=== PATIENT | female | born 1990 | race African-American/Black ===

== ENCOUNTER 2019-10-31 16:18 | Outpatient (CLI) | payer OTHER | END 2019-10-31 16:19 | disposition home or self-care (01) | LOC: DTY/OP 16:18 | PROVIDERS: ATTEND Surgery | DX: E66.01 Morbid (severe) obesity due to excess calories (principal) | CPT/HCPCS: 97802 ==

== ENCOUNTER 2019-11-07 07:35 | Outpatient (CLI) | payer OTHER ==
--- NOTE | 2019-11-07 16:28 | RAD ---
EXAM: Chest PA and lateral: HISTORY: Preoperative exam. COMPARISON: 04/05/2014 FINDINGS: Heart: Normal cardiac silhouette Aorta: Unremarkable Pulmonary vessels: Normal Costophrenic angles: Costophrenic angles are clear. Lungs: No consolidation or masses. Pneumothorax: No pneumothorax Osseous structures: No osseous abnormalities IMPRESSION: No acute cardiopulmonary process.
[2019-11-07 18:17] LABS: #Basophils 0.1 thou/uL (0.0-0.2); #Eosinphils 0.3 thou/uL (0.0-0.7); #Lymphocytes 3.9 thou/uL (1.20-3.40); #Monocytes 0.6 thou/uL (0.11-0.59); #Neutrophils 4.9 thou/uL (1.40-6.50); %Basophils 1.3 % (0.0-1.0); %Eosinophils 2.7 % (0.0-10.0); %Lymphocytes 39.8 % (21.0-51.0); %Neutrophils 50.1 % (42.0-75.0); Hemoglobin 11.5 g/dL (12.0-16.0); Mean Corpuscular HGB CONC 31.3 g/dL (32.0-36.0); Mean Corpuscular Hemoglobin 28.3 pg (27.0-31.0); Mean Corpuscular Volume 90.4 fL (78.0-98.0); Mean Platelet Volume 7.3 fL (7.4-10.4); Platelet Count 419 thou/uL (130-400); RBC Distribution Width 13.6 % (11.5-14.5); Red Blood Cell (RBC) Count 4.07 mill/uL (4.20-5.40); White Blood Cell (WBC) Count 9.8 thou/uL (4.8-10.8)
[2019-11-07 18:27] LABS: Hemoglobin A1c 5.4 % (4.0-6.0)
[2019-11-07 18:33] LABS: ALT (SGPT) 9 U/L (8-55); AST (SGOT) 14 U/L (5-34); Albumin 4.5 g/dL (3.5-5.0); Alkaline Phosphatase 102 U/L (40-110); Anion Gap 13 mmol/L (10-20); BUN (Urea Nitrogen) 12 mg/dL (7.0-18.7); Bilirubin, Total 0.4 mg/dL (0.2-1.2); Calc. Creatinine Clearance 0 mL/min (70-130); Calcium 9.4 mg/dL (7.8-10.44); Carbon Dioxide 24 mmol/L (22-29); Chloride 106 mmol/L (98-107); Estimated GFR-MDRD Greater than 90; Globulin 3.6 g/dL (2.4-3.5); Glucose 95 mg/dL (70-105); Potassium 4.5 mmol/L (3.5-5.1); Protein, Total 8.1 g/dL (6.0-8.3); Sodium 138 mmol/L (136-145)
[2019-11-08 14:02] LABS: SARS-CoV-2 MS2 Positive; SARS-CoV-2 N Gene Negative; SARS-CoV-2 S Gene Negative; SARS-CoV-2 orf1ab Negative
== END 2019-11-07 07:36 | disposition home or self-care (01) ==
LOC: LABBT 07:35
PROVIDERS: ATTEND Surgery
DX: Z01.818 Encounter for other preprocedural examination (principal); Z11.59 Encounter for screening for other viral diseases; E66.01 Morbid (severe) obesity due to excess calories
CPT/HCPCS: 71046; 80053; 83036; 85025; 87635; 93005; 93010; U0003

== ENCOUNTER 2019-11-07 16:15 | Inpatient (IN) | payer OTHER ==
[2019-11-04 09:26] VITALS: BMI 45.8
[2019-11-10] MEDS ORDERED: Bupivacaine 0.25% HCL 30 ML VIAL ONE (06:55)
[2019-11-10] MEDS ORDERED: Lidocaine 1% w/Epinephrine 1:100K 20 ML VIAL ONE (06:55)
[2019-11-10] MEDS ORDERED: Heparin 5,000 UNITS/ML VIAL ONE (08:14)
[2019-11-10] MEDS ORDERED: Scopolamine 1.5 mg/72 hour Patch ONE (08:28)
[2019-11-10] MEDS ORDERED: Midazolam HCl 2 mg/2 ml Vial ONE (08:28)
[2019-11-10] MEDS ORDERED: Fentanyl 100 MCG/2 ML VIAL ONE ×2 (09:48→12:13)
[2019-11-10] MEDS ORDERED: HYDROmorphone 2 MG/ML VIAL ONE (09:48)
[2019-11-10] MEDS ORDERED: EPHEDRINE 25 MG/5 ML SYRINGE ONE (11:47)
[2019-11-10] MEDS ORDERED: Morphine Sulfate 2 MG/ML SYRINGE SLOW IVP PRN (11:47)
[2019-11-10] MEDS ORDERED: PACU-Morphine 4MG/ML VIAL SLOW IVP PRN (11:47)
[2019-11-10] MEDS ORDERED: Lidocaine 1% PF 5 ML VIAL ONE (11:47)
[2019-11-10] MEDS ORDERED: HYDROmorphone 2 MG/ML VIAL SLOW IVP PRN (11:47)
[2019-11-10] MEDS ORDERED: Rocuronium Bromide 10 MG/ML (10ML VIAL) ONE (11:47)
[2019-11-10] MEDS ORDERED: Promethazine HCl 25 MG/ML VIAL SLOW IVP PRN (11:47)
[2019-11-10] MEDS ORDERED: Ketorolac Tromethamine 30 MG/ML VIAL ONE (11:47)
[2019-11-10] MEDS ORDERED: Ondansetron HCl/PF 4 MG/2 ML Vial IVP PRN (11:47)
[2019-11-10] MEDS ORDERED: PROPOFOL 200 MG/20 ML VIAL ONE (11:47)
[2019-11-10] MEDS ORDERED: Dexamethasone 20 MG/5 ML VIAL ONE (11:47)
[2019-11-10] MEDS ORDERED: Ondansetron PF 4 MG/2 ML Vial ONE (11:47)
[2019-11-10] MEDS ORDERED: Glycopyrrolate 0.2 MG/ML 5 ML SYRINGE ONE (11:47)
[2019-11-10] MEDS ORDERED: Meperidine HCl/PF 25 MG/ML VIAL SLOW IVP PRN (11:47)
[2019-11-10] MEDS ORDERED: Promethazine HCl 25 MG/ML VIAL IM PRN ×3 (11:47→12:24)
[2019-11-10] MEDS ORDERED: Promethazine HCl 25 MG/ML VIAL ONE (12:16)
[2019-11-10] MEDS ORDERED: diphenhydrAMINE 25 MG CAP PO PRN (12:20)
[2019-11-10] MEDS ORDERED: Ondansetron PF 4 MG/2 ML Vial IVP PRN ×2 (12:20→12:24)
[2019-11-10] MEDS ORDERED: diphenhydrAMINE 50 MG/ML VIAL IM PRN (12:20)
[2019-11-10] MEDS ORDERED: Zolpidem Tartrate 5 MG TAB PO PRN (12:20)
[2019-11-10] MEDS ORDERED: Naloxone HCl 0.4 mg/ml Vial IV PRN (12:20)
[2019-11-10] MEDS ORDERED: fentaNYL Citrate/PF 2,000 MCG in Sodium Chloride 0.9% 60 ML IV PRN (12:20)
[2019-11-10] MEDS ORDERED: diphenhydrAMINE 50 MG/ML VIAL IVP PRN ×2 (12:20→12:24)
[2019-11-10] MEDS ORDERED: Dextrose 50% Abboject 50 ML SYRINGE SLOW IVP PRN (12:24)
[2019-11-10] MEDS ORDERED: hydrALAZINE 20 MG/ML VIAL SLOW IVP PRN (12:24)
[2019-11-10] MEDS ORDERED: Dextrose 5% in Water 1,000 ML IV PRN (12:24)
[2019-11-10] MEDS ORDERED: Hydrocodone-Acetamin 15 ML UDCUP PO PRN (12:24)
[2019-11-10] MEDS ORDERED: Communication Order-Pharmacy FS SCH (12:30)
[2019-11-10] MEDS: D5 1/2 NS w/20 mEq KCL 1,000 ML IV SCH ×3 (14:36→21:14)
--- NOTE | 2019-11-10 17:23 | OP ---
DATE OF PROCEDURE: 11/10/2019 PREOPERATIVE DIAGNOSIS: Morbid obesity with body mass index of 45. POSTOPERATIVE DIAGNOSES: 1. Morbid obesity with body mass index of 45. 2. Paraesophageal hiatal hernia. PROCEDURES PERFORMED: 1. Laparoscopic sleeve gastrectomy with GORE staple line reinforcement and 38-Upper [place] bougie. 2. Laparoscopic hiatal hernia repair without fundoplication or mesh. 3. Esophagogastroduodenoscopy. ANESTHESIA: General. ESTIMATED BLOOD LOSS: Minimal. COMPLICATIONS: None. SPECIMENS: Stomach. FINDINGS: Hiatal hernia, normal postoperative EGD. DESCRIPTION OF PROCEDURE: The patient was taken to the operating room and laid supine on the operating room table. After general anesthetic was obtained, arms and legs were double strapped to bariatric table. OG-tube was used to decompress the stomach. The abdomen was prepped and draped in a sterile fashion. Left subcostal 5-mm Optiview trocar was placed in the usual fashion. High-flow pneumoperitoneum was obtained. Left and right abdominal 12-mm ports as well as a right subcostal 5 mm port were placed under direct visualization. A 5-mm incision was made at the xiphoid, and then Semaj was brought in and then used to raise the liver off the GE junction. The short gastrics were taken down from midbody of stomach to the left becki of the diaphragm. Left becki, posterior fundus, and angle of His were completely dissected. Short gastrics were taken down to a distance of 6 cm proximal to the pylorus. In dissecting the angle of His, there was found to be a paraesophageal hiatal hernia. The fundus was dissected back down into the abdominal cavity. Circumferential dissection of the esophagus was performed. The bare area of the liver was opened. There was a blood vessel going across there that was left intact, and the right becki of the diaphragm was dissected as part of the circumferential dissection as well. The GE junction and fundus brought back down into the abdominal cavity. The 38-bougie was brought and tip was left in the antrum of the stomach. Multiple loads of [place] stapling device were used to form the sleeve. The first was fired up at the distance of 6 cm proximal to the pylorus, angled up towards the incisura. Care was taken to avoid being to close to the incisura. Multiple loads were then fired along the bougie. Stomach was completely transected at the angle of His. Stomach was removed from the left abdominal incision. This fascial defect was closed using GraNee needle and Vicryl tie. Two Ethibond sutures with the a Ti-KNOT system were used to close the crural defect posteriorly. The EGD scope was passed from the esophagus through the stomach to the level of the duodenum without obstruction. There was no stricture at the incisura. There was no involvement of the GE junction with the staple line. No evidence of stenosis or air leak. The EGD scope was used to decompress the stomach, was pulled and removed. Semaj retractor was removed under direct visualization without bleeding. All port sites were infiltrated using local anesthetic and removed without bleeding. Pneumoperitoneum was let down. Vicryl was used to close the fascial defect from the left abdominal incisions. All incisions were then irrigated and closed using 4-0 Monocryl and Dermabond. The patient was sent to Recovery in stable condition. All instrument counts, needle counts, and lap counts were correct. Job ID: [id number]
[2019-11-10] MEDS: Enoxaparin Sodium 40 MG/0.4 ML SYRINGE SC SCH (21:14)
[2019-11-11 05:54] LABS: #Lymphocytes 1.7 thou/uL (1.20-3.40); #Monocytes 0.5 thou/uL (0.11-0.59); #Neutrophils 8.3 thou/uL (1.40-6.50); %Basophils 0.3 % (0.0-1.0); %Eosinophils 0.2 % (0.0-10.0); %Lymphocytes 16.4 % (21.0-51.0); %Monocytes 4.6 % (0.0-10.0); %Neutrophils 78.6 % (42.0-75.0); Hemoglobin 9.9 g/dL (12.0-16.0); Mean Corpuscular HGB CONC 31.9 g/dL (32.0-36.0); Mean Corpuscular Hemoglobin 28.9 pg (27.0-31.0); Mean Corpuscular Volume 90.5 fL (78.0-98.0); Mean Platelet Volume 7.1 fL (7.4-10.4); Platelet Count 407 thou/uL (130-400); RBC Distribution Width 13.3 % (11.5-14.5); Red Blood Cell (RBC) Count 3.43 mill/uL (4.20-5.40); White Blood Cell (WBC) Count 10.5 thou/uL (4.8-10.8)
[2019-11-11 06:16] LABS: Anion Gap 12 mmol/L (10-20); BUN (Urea Nitrogen) 6 mg/dL (7.0-18.7); Calc. Creatinine Clearance 242 mL/min (70-130); Calcium 8.7 mg/dL (7.8-10.44); Carbon Dioxide 22 mmol/L (22-29); Chloride 107 mmol/L (98-107); Estimated GFR-MDRD Greater than 90; Glucose 125 mg/dL (70-105); Sodium 137 mmol/L (136-145)
[2019-11-11] MEDS ORDERED: Hydrocodone-Acetamin 15 ML UDCUP PO PRN (07:12)
[2019-11-11] MEDS: D5 1/2 NS w/20 mEq KCL 1,000 ML IV SCH ×3 (08:05→20:19)
[2019-11-11] MEDS ORDERED: Pantoprazole 40 MG VIAL IVP SCH (09:00)
--- NOTE | 2019-11-11 12:48 | DIS ---
DATE OF ADMISSION: 11/10/2019 DATE OF DISCHARGE: 11/11/2019 ADMITTING DIAGNOSIS: Morbid obesity. DISCHARGE DIAGNOSIS: Morbid obesity. PROCEDURES PERFORMED: Laparoscopic sleeve gastrectomy and hiatal hernia repair by Dr. Cervantes without complication. CONDITION ON DISCHARGE: Improved. HOSPITAL COURSE: On postop day #1, the patient is ambulatory. Her pain is controlled. She is tolerating the liquids. She is discharged home. Prescriptions for Lortab, Elixir, Zofran, pantoprazole are sent to [facility] . She will follow up with me in 2 weeks. Job ID: [id number]
[2019-11-11 16:01] VITALS: TEMP 97.8
[2019-11-11] MEDS: Enoxaparin Sodium 40 MG/0.4 ML SYRINGE SC SCH (20:12)
[2019-11-11 21:23] VITALS: BP 159/92
== END 2019-11-11 21:50 | disposition home or self-care (01) | DRG 621 ==
LOC: SURG A 11-10 06:49 → EDSTATUS 11-10 16:15
PROVIDERS: ADMIT Surgery; ATTEND Surgery
PROC: 0DB64Z3 Excision of Stomach, Percutaneous Endoscopic Approach, Vertical (ICD-10-PCS; principal; 2019-11-10)
PROC: 0BQT4ZZ Repair Diaphragm, Percutaneous Endoscopic Approach (ICD-10-PCS; 2019-11-10)
PROC: 0DJ08ZZ Inspection of Upper Intestinal Tract, Via Natural or Artificial Opening Endoscopic (ICD-10-PCS; 2019-11-10)
DX: E66.01 Morbid (severe) obesity due to excess calories (principal); K44.9 Diaphragmatic hernia without obstruction or gangrene; Z68.42 Body mass index [BMI] 45.0-49.9, adult
CPT/HCPCS: 36415; 80048; 85025; 88307; 88312; 94760; C9113; J0690; J1100; J1170; J1644; J1650; J1885; J2250; J2405; J2550; J2704; J3010; J3480; S0020

== ENCOUNTER 2024-05-14 15:24 | Emergency (ER) | payer SELFPAY ==
[~2024-05-14 15:24] MED LIST: Iopamidol-370 76% 500 ML MDV (1 ML CHARGE) ONE
[2024-05-14] MEDS ORDERED: Ipratropium/Albuterol 3 ML NEB ONE (16:33)
[2024-05-14] MEDS ORDERED: Dexamethasone 10 MG/ML VIAL ONE (16:33)
[2024-05-14 16:54] LABS: #Basophils 0.03 10x3/uL (0.0-0.2); %Basophils 0.4 % (0.0-1.0); %Eosinophils 3.9 % (0.0-10.0); %Lymphocytes 26.4 % (21.0-51.0); %Monocytes 5.9 % (0.0-10.0); %Neutrophils 63.3 % (42.0-75.0); Hematocrit 37.5 % (36.0-47.0); Hemoglobin 12.4 g/dL (12.0-16.0); Mean Corpuscular HGB CONC 33.1 g/dL (32.0-36.0); Mean Corpuscular Hemoglobin 30.3 pg (27.0-31.0); Mean Corpuscular Volume 91.7 fL (78.0-98.0); Mean Platelet Volume 9.2 fL (7.4-10.4); Platelet Count 288 10x3/uL (130-400); RBC Distribution Width 13.3 % (11.5-14.5); Red Blood Cell (RBC) Count 4.09 mill/uL (4.20-5.40)
[2024-05-14 17:03] LABS: BHCG - Serum Negative (NEGATIVE)
[2024-05-14 17:04] LABS: Pregs Control Background? CLEAR/WHITE (CLR/WHITE); Pregs Control Bar Appear? YES (CONTROL BAR)
[2024-05-14 17:13] LABS: ALT (SGPT) 11 U/L (8-55); AST (SGOT) 19 U/L (5-34); Alkaline Phosphatase 69 U/L (40-110); Anion Gap 14 mmol/L (10-20); BUN (Urea Nitrogen) 6 mg/dL (7.0-18.7); Bilirubin, Total 0.5 mg/dL (0.2-1.2); Calc. Creatinine Clearance 0 mL/min (70-130); Calcium 9.2 mg/dL (7.8-10.44); Carbon Dioxide 20 mmol/L (22-29); Chloride 109 mmol/L (98-107); Estimated GFR 100; Globulin 3.9 g/dL (2.4-3.5); Glucose 84 mg/dL (70-105); Potassium 3.7 mmol/L (3.5-5.1); Protein, Total 7.9 g/dL (6.0-8.3); Sodium 139 mmol/L (136-145)
[2024-05-14 17:50] LABS: Troponin I Less than 0.010 ng/mL (< 0.028)
== END 2024-05-14 18:22 | disposition home or self-care (01) ==
LOC: ERS 15:24
DX: J45.901 Unspecified asthma with (acute) exacerbation (principal); Z87.891 Personal history of nicotine dependence
CPT/HCPCS: 36415; 71046; 71275; 80053; 84484; 84703; 85025; 85379; 87428; 93005; 94640; J1100; J7620

== ENCOUNTER 2024-05-22 19:10 | Emergency (ER) | payer SELFPAY | END 2024-05-22 22:28 | disposition left against medical advice (07) | LOC: ERS 19:10 | DX: Z53.21 Procedure and treatment not carried out due to patient leaving prior to being seen by health care provider (principal) | CPT/HCPCS: 71045; 93005 ==